=== PATIENT | male | born 1940 | race Caucasian/White ===

== ENCOUNTER 2017-01-13 12:03 | Emergency (ER) | payer OTHER ==
[~2017-01-13] VITALS: Ht 188 cm; Wt 97.8 kg
[~2017-01-13 12:03] MED LIST: DILAUDID2 MG PO; KEFLEX500 MG PO; LORTAB 5-500 T1 EACH PO; [UNRECOGNIZED DRUG - REMARK]
[2017-01-13 12:38] LABS: HEMATOCRIT 47.4 % (38.0-50.0); MCH 28.6 PG (29.0-34.0); MCHC 32.9 G/DL (30.0-36.0); RBC DIS.WIDTH-CV 13.2 % (11.8-14.6); RBC DIS.WIDTH-SD 41.2 % (39-53); RED BLOOD COUNT 5.45 M/uL (4.00-5.50); WHITE BLOOD COUNT 6.2 K/uL (4.1-10.2)
[2017-01-13 12:50] LABS: CHLORIDE 106 mEq/L (99-109); POTASSIUM 4.2 mEq/L (3.7-5.4); SODIUM 138 mEq/L (136-147)
[2017-01-13 12:51] LABS: GLUCOSE 94 mg/dL (70-99)
[2017-01-13 12:53] LABS: ANION GAP 8 MEQ/L (2-14)
[2017-01-13 12:55] LABS: GFR ESTIMATE (CALCULATED) > 59 mL/min/
[2017-01-13 12:56] LABS: UREA NITROGEN (BUN) 13 mg/dL (9-23)
[2017-01-13 13:18] LABS: MEAN PLAT.VOLUME 10.8 uM^3 (9.0-12.4); PLATELET COUNT 228 K/uL (156-360)
[2017-01-13] MEDS ORDERED: XARELTO1 EACH PO (14:10)
[2017-01-13 14:44] LABS: INTER. NORMALIZED RATIO 1.1; PROTHROMBIN TIME 10.8 (9.2-11.2); PTT 27.5 (25-32)
[2017-01-13 14:55] VITALS: BP 156/85
== END 2017-01-13 14:57 | disposition home or self-care (01) ==
LOC: RME 12:03 → EME 12:03 → RME 14:57
PROVIDERS: Physician Assistant
DX: I82.412 Acute embolism and thrombosis of left femoral vein (principal); I82.442 Acute embolism and thrombosis of left tibial vein; I10 Essential (primary) hypertension; Z86.718 Personal history of other venous thrombosis and embolism
CPT/HCPCS: 80048; 85027; 85610; 85730; 99281; 99284

== ENCOUNTER 2017-05-07 16:22 | Inpatient (IN) | payer OTHER ==
[~2017-05-07] VITALS: Ht 188 cm; Wt 96.6 kg
[~2017-05-07 16:22] MED LIST changes: +XARELTO1 EACH PO
[2017-05-07 17:04] LABS: HEMATOCRIT 46.4 % (38.0-50.0); MCH 29.4 PG (29.0-34.0); MCHC 34.1 G/DL (30.0-36.0); MCV 86.4 FL (86-99); RBC DIS.WIDTH-CV 12.8 % (11.8-14.6); RBC DIS.WIDTH-SD 40.2 % (39-53); RED BLOOD COUNT 5.37 M/uL (4.00-5.50); WHITE BLOOD COUNT 10.6 K/uL (4.1-10.2)
[2017-05-07 17:15] LABS: CHLORIDE 104 mEq/L (99-109); POTASSIUM 3.9 mEq/L (3.7-5.4); SODIUM 133 mEq/L (136-147)
[2017-05-07 17:17] LABS: GLUCOSE 90 mg/dL (70-99)
[2017-05-07 17:18] LABS: ANION GAP 9 MEQ/L (2-14)
[2017-05-07 17:20] LABS: GFR ESTIMATE (CALCULATED) > 59 mL/min/
[2017-05-07 17:21] LABS: UREA NITROGEN (BUN) 12 mg/dL (9-23)
[2017-05-07 17:42] LABS: HEMATOLOGY COMMENT 1 SN; MEAN PLAT.VOLUME 10.9 uM^3 (9.0-12.4); PLAT.SUFFICIENCY ADEQUATE; PLATELET COUNT 168 K/uL (156-360)
[2017-05-07] MEDS ORDERED: CYANOCOBALAM1000 MCG PO (18:58)
[2017-05-07] MEDS ORDERED: VITAMIN B-6100 MG PO (18:59)
[2017-05-07] MEDS ORDERED: VITAMIN D-32000 UNI2 PO (18:59)
[2017-05-07] MEDS ORDERED: ASPIRIN325 MG PO (18:59)
[2017-05-07] MEDS ORDERED: PROSTATE 2.4 C1 EACH PO (19:00)
[2017-05-07] MEDS ORDERED: DIOVAN320 MG PO (19:00)
[2017-05-07] MEDS ORDERED: METAMUCIL PLUS1 EACH PO (19:00)
[2017-05-07] MEDS ORDERED: NORVASC10 MG PO (19:00)
[2017-05-07] MEDS ORDERED: OMEPRAZOLE40 M1 PO (19:01)
[2017-05-07 19:33] LABS: TOTAL BILIRUBIN 0.9 mg/dL (0.0-1.0)
[2017-05-07 19:34] LABS: ALKALINE PHOSPHATASE 94 IU/L (3-129)
[2017-05-07 19:36] LABS: DIRECT BILIRUBIN 0.3 mg/dL (0.0-0.3)
[2017-05-07 19:37] LABS: LIPASE 20 U/L (1.0-51.0)
[2017-05-07 19:58] LABS: ADD MIUA? NO; BILIRUBIN NEGATIVE; BLOOD NEGATIVE; COLOR YELLOW ((YELLOW)); GLUCOSE (STRIP) NEGATIVE; KETONES NEGATIVE; LEUKOCYTES NEGATIVE; NITRITE NEGATIVE; PROTEIN (STRIP) NEGATIVE; SPECIFIC GRAVITY 1.008 (1.000-1.030); UROBILINOGEN 0.2 MG/DL (0.2-1.0)
[2017-05-07] MEDS ORDERED: LITE COAT ASPI325 M1 PO (20:46)
[2017-05-07] MEDS ORDERED: METAMUCIL POWD798 GM PO (20:47)
[2017-05-07 23:01] LABS: C DIFF TOXIN POSITIVE (NEGATIVE)
[2017-05-07 23:02] LABS: PROBE CHECK PASS
[2017-05-07 23:34] LABS: HEMATOCRIT 45.1 % (38.0-50.0); MCH 28.9 PG (29.0-34.0); MCHC 33.5 G/DL (30.0-36.0); MCV 86.4 FL (86-99); MEAN PLAT.VOLUME 11.1 uM^3 (9.0-12.4); PLATELET COUNT 149 K/uL (156-360); RBC DIS.WIDTH-CV 12.9 % (11.8-14.6); RBC DIS.WIDTH-SD 40.3 % (39-53); RED BLOOD COUNT 5.22 M/uL (4.00-5.50); WHITE BLOOD COUNT 9.6 K/uL (4.1-10.2)
[2017-05-08] VITALS (7 sets, daily range): BP systolic 110–133; BP diastolic 64–82
[2017-05-08 09:48] LABS: HEMATOCRIT 44.2 % (38.0-50.0); MCV 87.4 FL (86-99)
[2017-05-08 10:24] LABS: ANION GAP 7 MEQ/L (2-14); CHLORIDE 107 MEQ/L (99-109); GFR ESTIMATE (CALCULATED) > 59 mL/min/; GLUCOSE 93 mg/dL (70-99); POTASSIUM 3.9 MEQ/L (3.7-5.4); SAMPLE HEMOLYSIS CHECK 0; SAMPLE ICTERIC CHECK 0; SAMPLE LIPEMIA CHECK 0; SODIUM 139 MEQ/L (136-147); UREA NITROGEN (BUN) 10 mg/dL (9-23)
[2017-05-08 19:54] LABS: HEMATOCRIT 44.6 % (38.0-50.0); MCV 87.5 FL (86-99)
[2017-05-09 03:02] VITALS: BP 114/67
[2017-05-09 09:26] LABS: HEMATOCRIT 47.9 % (38.0-50.0); MCH 28.4 PG (29.0-34.0); MCHC 32.4 G/DL (30.0-36.0); MCV 87.7 FL (86-99); RBC DIS.WIDTH-SD 41.7 % (39-53); RED BLOOD COUNT 5.46 M/uL (4.00-5.50); WHITE BLOOD COUNT 6.9 K/uL (4.1-10.2)
[2017-05-09 09:37] VITALS: BP 128/58
[2017-05-09 10:28] LABS: MEAN PLAT.VOLUME 11.4 uM^3 (9.0-12.4); PLAT.SUFFICIENCY ADEQUATE; PLATELET COUNT 168 K/uL (156-360)
[2017-05-09 17:09] VITALS: BP 115/65
[2017-05-09 18:32] LABS: HEMATOCRIT 44.9 % (38.0-50.0); MCV 87.9 FL (86-99)
[2017-05-09 19:15] VITALS: BP 120/74
[2017-05-09 22:38] VITALS: BP 126/81
[2017-05-10 03:22] VITALS: BP 115/66
[2017-05-10 05:55] LABS: EOSINOPHIL (%) 2.8 % (0-5); EOSINOPHIL COUNT 0.2 K/uL (0-0.3); HEMATOCRIT 44.6 % (38.0-50.0); IMMATURE GRANULOCYTE (%) 0.4 % (0.0-0.7); INSTRUMENT ABS NEUTROPHIL CT 4.6 K/uL; LYMPHOCYTE COUNT 1.4 K/uL (1.0-2.8); MCH 28.2 PG (29.0-34.0); MCHC 32.5 G/DL (30.0-36.0); MCV 86.8 FL (86-99); MEAN PLAT.VOLUME 11.2 uM^3 (9.0-12.4); MONOCYTE (%) 14.4 % (3-12); NEUTROPHIL COUNT 4.6 K/uL (1.8-6.4); PLATELET COUNT 159 K/uL (156-360); RBC DIS.WIDTH-CV 12.7 % (11.8-14.6); RBC DIS.WIDTH-SD 40.5 % (39-53); RED BLOOD COUNT 5.14 M/uL (4.00-5.50); WHITE BLOOD COUNT 7.2 K/uL (4.1-10.2)
[2017-05-10 08:23] VITALS: BP 120/70
[2017-05-10] MEDS ORDERED: FLAGYL500 MG PO ×2 (10:41→11:35)
[2017-05-12 13:57] LABS: POC NON-PRINT COM 1 ND
== END 2017-05-10 15:00 | disposition home or self-care (01) | DRG 372 ==
LOC: EME 16:22 → EDOF 22:26 → 5WEST 22:26 → 5EAST 05-08 22:10
PROVIDERS: Hospitalist; Internal Medicine Gastroenterology; Physician Assistant
DX: A04.7 Enterocolitis due to Clostridium difficile (principal); I48.91 Unspecified atrial fibrillation; K92.2 Gastrointestinal hemorrhage, unspecified; I10 Essential (primary) hypertension; Z86.718 Personal history of other venous thrombosis and embolism; Z79.01 Long term (current) use of anticoagulants; K57.30 Diverticulosis of large intestine without perforation or abscess without bleeding; K80.20 Calculus of gallbladder without cholecystitis without obstruction; N30.20 Other chronic cystitis without hematuria; N40.0 Benign prostatic hyperplasia without lower urinary tract symptoms; Z79.82 Long term (current) use of aspirin; Z79.899 Other long term (current) drug therapy; Z89.511 Acquired absence of right leg below knee
CPT/HCPCS: 74177; 80048; 80076; 81003; 82272; 83605; 83690; 85014; 85018; 85025; 85027; 86900; 86901; 87493; 87506; 93005; 99281; 99285; G0378; J0744; J7030; S0030